=== PATIENT | male | born 1990 | race Caucasian/White ===

== ENCOUNTER → 2019-06-25 13:56 | Outpatient (BNVA) | payer SELFPAY | PROVIDERS: Family Provider Family Medicine; Visit Provider Family Medicine | DX: J02.9 Acute pharyngitis, unspecified (principal) | CPT/HCPCS: 87081; 87880 ==

== ENCOUNTER 2019-10-14 06:01 | Observation (INO) | payer SELFPAY ==
[2019-10-14] VITALS (30 sets, daily range): BP systolic 133–184; BP diastolic 69–121; PULSE 69–101; RESP 15–20; TEMP 36.5–37; O2SAT 94–99; BMI 36.9
--- NOTE | 2019-10-14 | CT_ITS ---
WS: [id number] CT ABDOMEN AND PELVIS WITH CONTRAST HISTORY: ABD PAIN TECHNIQUE: Imaging performed of the abdomen and pelvis with IV contrast. Single phase imaging of the abdomen. Coronal and sagittal reformats are submitted. All CT scans at [facility] use at least one of these dose optimization techniques: automated exposure control; mA and/or kV adjustment per patient size (includes targeted exams where dose is matched to clinical indication); or iterativ e reconstruction. IV CONTRAST: Omnipaque 300; 95 mL IV. Oral contrast: No DLP: 1837.44 mGy.cm COMPARISON: None available. Lower thorax: Lung bases are clear. Heart is normal size. No hiatal hernia. Liver/biliary system: Normal size with no intrahepatic dilatation. Gallbladder: Normal. No gallstones or wall thickening. No pericholecystic fluid. Pancreas: Normal. Spleen: Normal. Adrenal glands: Normal. Right kidney: Cortical hypodensity upper pole too small to characterize. No mass, calcification or ob struction. Left kidney: Normal. Aorta: Normal. Lymphadenopathy: None. Free fluid: None. GI tract: The appendix is visualized. There is no significant periappendiceal inflammation or fluid. There is very slight hyperemia and the appendix is measuring 6 to 7 mm in diameter. Remaining GI trac t is negative. Abdominal wall: Unremarkable abdominal wall. No hernia. Pelvis: Normal. Bones: L5 anterolisthesis by 4 mm with bilateral pars defects at L5. CT/CT abdomen pelvis w con* [id number] IMPRESSION: 1. No GI tract obstruction. 2. The appendix is very slightly enlarged without adjacent inflammation. No pr ior studies for comparison. Very early changes of developing appendicitis shoul d be considered if this correlates with the clinical presentation.
--- NOTE | 2019-10-14 06:15 | PC.NURSE ---
patient states he started having abdominal pain on sunday. patient states his whole abdomen hurts with sharp pain.
[2019-10-14] MEDS: sodium chloride 0.9% 1,000 ML 999 ML IV (06:41)
[2019-10-14 06:51] LABS: Basophils % 0.1 %; Eosinophils # 0.3 10^3/uL (0.0-0.8); Eosinophils % 2.1 %; Hematocrit 48.4 % (42.0-52.0); Hemoglobin 15.9 g/dL (11.7-16.6); Lymphocytes # 1.9 10^3/uL (0.8-4.8); Lymphocytes % 11.6 %; Mean Corpuscular HGB Conc 32.9 g/dL (30.0-36.0); Mean Corpuscular Hemoglobin 27.9 pg (28.0-34.0); Mean Corpuscular Volume 85.1 fL (80-94); Mean Platelet Volume 10.5 fL (7.4-10.4); Monocytes % 6.4 %; Neutrophils # 12.8 10^3/uL (1.8-7.7); Neutrophils % 79.5 %; Nucleated Red Blood Cells % 0 %; Platelet Count 318 10^3/cmm (130-400); Red Blood Count 5.69 10^6/uL (4.1-5.3); Red Cell Distribution Width 13.2 % (12.1-15.1)
--- NOTE | 2019-10-14 06:54 | US_ITS ---
WS: [id number] RIGHT UPPER QUADRANT ULTRASOUND HISTORY: abd pain COMPARISON: 03/12/2018 Technically very difficult RIGHT upper quadrant evaluation. Liver: 21.5 cm in length. Marked enlargement of the liver. Liver is incompletely visualized due to he patic steatosis and body habitus. No mass identified. No bile duct dilatation. Gallbladder: Normally distended gallbladder with no stones or wall thickening. CBD: 0.5 cm Pancreas: Not visualized. Right kidney: 10.6 cm in length. Normal echogenicity with no mass or hydronephrosis. Aorta and IVC: Aorta and IVC are not visualized. No ascites. US/US gall bladder [id number] IMPRESSION: 1. Technically very difficult RIGHT upper quadrant ultrasound due to body habi tus. 2. Marked hepatomegaly and hepatic steatosis. 3. Negative gallbladder.
[2019-10-14 07:04] LABS: Alanine Aminotransferase 61 U/L (0-41); Albumin Level 4.5 g/dL (3.5-5.2); Alkaline Phosphatase 135 IU/L (40-130); Anion Gap 14.1 (5-19); Aspartate Amino Transferase 26 U/L (0-40); Blood Urea Nitrogen 9 mg/dL (6-20); Calcium 9.2 mg/dL (8.5-10.5); Carbon Dioxide 25 mmol/L (22-29); Chloride 100 mmol/L (98-107); Globulin 3.7 g/dL (1.3-4.6); Glomerular Filtration Rate 100.5 mL/min (90-130); Glucose 120 mg/dL (65-115); Lipase 19 U/L (13-60); Osmolality Calculated 277 mOsm/kg (285-295); Potassium 4.1 mmol/L (3.5-5.1); Sodium 135 mmol/L (136-145); Total Bilirubin 0.8 mg/dL (0.15-1.2); Total Protein 8.2 g/dL (6.6-8.7)
[2019-10-14 07:05] LABS: Lactate (Lactic Acid level) 0.8 mmol/L (0.5-2.2)
[2019-10-14] MEDS: morphine 4 mg/mL SDV 1 mL IVP (07:37)
[2019-10-14] MEDS: ondansetron 2 mg/ML SDV 2 mL 4 MG IVP ×2 (07:38→13:25)
--- NOTE | 2019-10-14 07:41 | PC.NURSE ---
PT IN NAD. PT DENIES ANY FURTHER NEEDS AT THIS TIME.
--- NOTE | 2019-10-14 07:46 | W.ED.ABDPA2 ---
HPI - Abdominal Pain General: Chief Complaint: Abdominal Pain Stated Complaint: ABD PAIN SINCE 10/10 Time Seen by Provider: 10/14/19 06:21 History of Present Illness: HPI narrative: 29-year-old male presents with epigastric pain radiating around into his back into his right upper quadrant and started about 2 to 3 days ago he has been nauseous with it no vomiting or diarrhea is not had a fever he is not had any GI blood loss that is noted no hematochezia melena hematemesis Anjum was taken Tylenol last couple days with no significant relief he has had several loose stools but he says that is chronic he also reports he is lactose intolerant he does not indulge in any large amounts of lactose lately that he can recall beyond that has not noticed any trigger foods or anything that seem to exacerbate or relieve it. MD elicited complaint: abdominal pain Pertinent past history: gastritis Onset (ago): day(s) (2) Pain Consistency: constant Location: RUQ Severity: moderate Quality: cramping and aching Radiation: R flank and back Migration to: periumbilical Exacerbating factors: nothing and other (Laying flat seem to worsen for exam) Relieving factors: nothing and other (Sitting up did seem to improve) Associated Symptoms: Reports bloating, change in bowel habits, GI cramping, diarrhea, dyspepsia, nausea and poor appetite; Denies dysuria, fever(s), hematochezia, hematuria, hematemesis, fecal incontinence and melena Review of Systems Const: Denies: fever(s) ENMT: Denies: throat pain, ear or mastoid pain, nasal discharge or nasal congestion Card: Denies: chest pain, edema, dyspnea on exertion or orthopnea Resp: Denies: dyspnea, productive cough or non-productive cough GI: Reports: nausea, diarrhea, bloating, GI cramping and change in bowel habits; Denies: hematemesis, fecal incontinence, hematochezia or melena : Denies: dysuria or hematuria Skin/Breast: Denies: rash or pruritus PFSH ED PFSH: Medical History Asthma Cardiac murmur Hypertension Surgical History No history of previous surgery Social History Smoking and tobacco status: never smoked Physical Exam Const: COMMON NORMALS: no acute distress GENERAL APPEARANCE: cooperative and comfortable ORIENTATION/CONSCIOUSNESS: Yes awake, Yes oriented to person, Yes oriented to place and Yes oriented to time HENMT: COMMON NORMALS: normocephalic, atraumatic, hearing grossly normal bilaterally, external ears normal, EAC's normal, TM's normal bilaterally, Normal nasal mucous membranes and turbinates present, moist oral mucous membranes and oropharynx normal HEAD & SCALP: normocephalic and atraumatic NOSE: Normal nasal mucous membranes and turbinates present EXTERNAL EAR: Yes external ears normal EXTERNAL AUDITORY CANAL: EAC's normal TYMPANIC MEMBRANE: TM's normal bilaterally Eye: COMMON NORMALS: Equal, round and reactive pupils present, EOMs intact bilaterally, conjunctivae normal and no scleral icterus CONJUNCTIVA: Yes conjunctivae normal PUPIL: Yes Equal, round and reactive pupils present Neck/C-Spine: COMMON NORMALS: full ROM, no lymphadenopathy, supple and no JVD Lymph: LYMPHATIC: no lymphadenopathy noted and no lymphedema noted Resp: COMMON NORMALS: normal respiratory effort, No retractions, No use of accessory muscles and clear to auscultation bilaterally AUSCULTATION: clear to auscultation bilaterally Cardio: COMMON NORMALS: no JVD, regular rate, regular rhythm and No murmurs present (Cardio) RATE: regular rate RHYTHM: regular rhythm GI: AUSCULTATION: Yes normoactive bowel sounds PALPATION: Yes Tenderness to palpation present (GI) Details: RUQ, No Guarding due to palpation present (GI), No Rigid due to palpation, No Ascites present, No Abdominal wall crepitus present and No Rebound tenderness present Extremity: COMMON NORMALS: normal to inspection, capillary refill normal, no clubbing, cyanosis or edema, no calf tenderness and no pedal edema Neuro: SENSORIUM/ORIENTATION: Yes oriented to person, Yes oriented to place and Yes oriented to time Skin: COMMON NORMALS: no rashes or lesions noted GENERAL SKIN EXAM: no rashes or lesions noted Course Vital Signs: Vital signs: Vital Signs Temperature 97.9 F 10/15/19 02:35 Pulse Rate 76 10/15/19 02:35 Respiratory Rate 18 10/15/19 02:35 Blood Pressure 148/86 10/15/19 02:35 Pulse Oximetry 97 10/15/19 02:35 MDM - Abdominal Pain MDM Narrative: Medical decision making narrative: Discussed CT findings with the patient as well as with Dr. Byrnes. He plans to take the patient to the operating room from the ER. Be brought to outpatient surgery for laparoscopy with planned appendectomy per Dr. Byrnes. Further disposition from there. Lab Data: Labs: Lab Results 10/14/19 10/14/19 10/14/19 Range/Units 06:44 06:44 06:44 WBC 16.0 H (4.0-10.0) 10^3/ uL RBC 5.69 H (4.1-5.3) 10^6/u L Hgb 15.9 (11.7-16.6) g/dL Hct 48.4 (42.0-52.0) % MCV 85.1 (80-94) fL MCH 27.9 L (28.0-34.0) pg MCHC 32.9 (30.0-36.0) g/dL RDW 13.2 (12.1-15.1) % Plt Count 318 (130-400) 10^3/c mm MPV 10.5 H (7.4-10.4) fL Neut % (Auto) 79.5 % Lymph % (Auto) 11.6 % [place] % (Auto) 6.4 % Eos % (Auto) 2.1 % Baso % (Auto) 0.1 % Neut # (Auto) 12.8 H (1.8-7.7) 10^3/u L Lymph # (Auto) 1.9 (0.8-4.8) 10^3/u L [place] # (Auto) 1.0 H (0.2-0.9) 10^3/u L Eos # (Auto) 0.3 (0.0-0.8) 10^3/u L Baso # (Auto) 0.0 (0.0-0.1) 10^3/u L Nucleated RBC % (a uto) 0 % Nucleated RBCs # 0.0 /100WBC Sodium 135 L (136-145) mmol/L Potassium 4.1 (3.5-5.1) mmol/L Chloride 100 (98-107) mmol/L Carbon Dioxide 25 (22-29) mmol/L Anion Gap 14.1 (5-19) BUN 9 (6-20) mg/dL Creatinine 0.9 (0.7-1.2) mg/dL GFR Calculation 100.5 (90-130) mL/min Glucose 120 H (65-115) mg/dL Calculated Osmolal ity 277 L (285-295) mOsm/k g Lactate 0.8 (0.5-2.2) mmol/L Calcium 9.2 (8.5-10.5) mg/dL Total Bilirubin 0.8 (0.15-1.2) mg/dL AST 26 (0-40) U/L ALT 61 H (0-41) U/L Alkaline Phosphata se 135 H (40-130) IU/L Total Protein 8.2 (6.6-8.7) g/dL Albumin 4.5 (3.5-5.2) g/dL Globulin 3.7 (1.3-4.6) g/dL Lipase 19 (13-60) U/L Hepatitis A IgM Ab (Nonreactive) Hep Bs Antigen (Nonreactive) Hep B Core IgM Ab (Nonreactive) Hepatitis C Antibo dy (Nonreactive) 10/14/19 Range/Units 06:44 WBC (4.0-10.0) 10^3/ uL RBC (4.1-5.3) 10^6/u L Hgb (11.7-16.6) g/dL Hct (42.0-52.0) % MCV (80-94) fL MCH (28.0-34.0) pg MCHC (30.0-36.0) g/dL RDW (12.1-15.1) % Plt Count (130-400) 10^3/c mm MPV (7.4-10.4) fL Neut % (Auto) % Lymph % (Auto) % [place] % (Auto) % Eos % (Auto) % Baso % (Auto) % Neut # (Auto) (1.8-7.7) 10^3/u L Lymph # (Auto) (0.8-4.8) 10^3/u L [place] # (Auto) (0.2-0.9) 10^3/u L Eos # (Auto) (0.0-0.8) 10^3/u L Baso # (Auto) (0.0-0.1) 10^3/u L Nucleated RBC % (a uto) % Nucleated RBCs # /100WBC Sodium (136-145) mmol/L Potassium (3.5-5.1) mmol/L Chloride (98-107) mmol/L Carbon Dioxide (22-29) mmol/L Anion Gap (5-19) BUN (6-20) mg/dL Creatinine (0.7-1.2) mg/dL GFR Calculation (90-130) mL/min Glucose (65-115) mg/dL Calculated Osmolal ity (285-295) mOsm/k g Lactate (0.5-2.2) mmol/L Calcium (8.5-10.5) mg/dL Total Bilirubin (0.15-1.2) mg/dL AST (0-40) U/L ALT (0-41) U/L Alkaline Phosphata se (40-130) IU/L Total Protein (6.6-8.7) g/dL Albumin (3.5-5.2) g/dL Globulin (1.3-4.6) g/dL Lipase (13-60) U/L Hepatitis A IgM Ab Non-reactive (Nonreactive) Hep Bs Antigen Non-reactive (Nonreactive) Hep B Core IgM Ab Non-reactive (Nonreactive) Hepatitis C Antibo dy Non-reactive (Nonreactive) Discharge Plan Discharge Patient Disposition: Placed in Observation Admit Provider: Luis Hamilton Clinical Impression: Acute appendicitis Condition: Stable Referrals: Santiago Proctor MD [Primary Care Provider] - Discharge Date/Time: 10/14/19 09:46 Coding Level of Care Code ED Quality Review Specialist for Chg Fwd Exam Comprehensive
[2019-10-14 08:06] LABS: Hepatitis A Antibody IgM Non-Reactive (Nonreactive); Hepatitis B Core IgM Non-Reactive (Nonreactive); Hepatitis B Surface Antigen Non-Reactive (Nonreactive); Hepatitis C Virus Antibody Non-Reactive (Nonreactive)
[2019-10-14] MEDS: iohexol 300 mg/mL 100 mL Btl IV (08:17)
[2019-10-14] MEDS: piperacillin-tazobactam 3.375 GM in sodium chloride 0.9% (plus) 50 ML IV ×2 (09:33→18:21)
--- NOTE | 2019-10-14 09:40 | PC.NURSE ---
DR. LLOYD AT BEDSIDE SPEAKING WITH PT. PT IS IN NAD.
--- NOTE | 2019-10-14 09:53 | PM.HP ---
Providers/Chief Complaint Chief Complaint: ABD PAIN SINCE 10/10 History of Present Illness Chief Complaint: My tummy hurts History of present illness: Mr. rafita Candelario is a 29 year old male presents to the emergency department with worsening abdominal pain that started in the upper abdomen last Sunday and over the last couple of days got worse and started to shift to the lower abdomen associated with nausea but no vomiting fevers or chills or change in bowel habits except for today he started to have diarrhea. Patient denies any urinary tract infection or dysuria. He never had this pain before as the pain got worse he presented to the ER for further evaluation as nothing seems to make it better except for some pain medication and undergone a CT scan of the abdomen and pelvis that showed: Liver/biliary system: Normal size with no intrahepatic dilatation. Gallbladder: Normal. No gallstones or wall thickening. No pericholecystic fluid. Pancreas: Normal. Spleen: Normal. Adrenal glands: Normal. Right kidney: Cortical hypodensity upper pole too small to characterize. No mass, calcification or obstruction. Left kidney: Normal. Aorta: Normal. Lymphadenopathy: None. Free fluid: None. GI tract: The appendix is visualized. There is no significant periappendiceal inflammation or fluid. There is very slight hyperemia and the appendix is measuring 6 to 7 mm in diameter. Remaining GI tract is negative. Abdominal wall: Unremarkable abdominal wall. No hernia. Pelvis: Normal. Bones: L5 anterolisthesis by 4 mm with bilateral pars defects at L5. CT/CT abdomen pelvis w con* [id number] IMPRESSION: 1. No GI tract obstruction. 2. The appendix is very slightly enlarged without adjacent inflammation. No prior studies for comparison. Very early changes of developing appendicitis should be considered if this correlates with the clinical presentation. 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 that did not require any intervention Review of Systems General: Reports: 10 or more systems reviewed and unremarkable except in HPI and below Medications/Allergies Home Medications Medication Instructions Recorded Confirmed Last Taken Type acetaminophen [Tylenol Extra 1,000 mg PO PRN 10/14/19 10/14/19 Unknown History Strength] ibuprofen [Advil] 400 mg PO PRN 10/14/19 10/14/19 10/13/19 History Allergies Allergy/AdvReac Type Severity Reaction Status Date / Time Milk Containing Products Allergy Lactose Verified 10/14/19 09:55 intolerance Sulfa (Sulfonamide Allergy swelling Verified 10/14/19 09:55 Antibiotics) PFSH Acute PFSH: Medical History Asthma Cardiac murmur Hypertension Surgical History No history of previous surgery Social History Smoking and tobacco status: never smoked Vitals/I&O/Wt Last Vital Signs Temp 98.6 F 10/14/19 06:08 Pulse 80 10/14/19 09:30 Resp 18 10/14/19 09:30 BP 170/105 10/14/19 09:30 Pulse Ox 95 10/14/19 09:30 Weight last 48 hrs Weight 280 lb Physical Exam Narrative: EXAM NARRATIVE: Patient is conscious alert oriented X3 BMI 37 Head and neck examination PERRLA no masses no cervical lymphadenopathy no jaundice Cardiac precordial murmur Chest is clear bilateral,abscence of Rhonchi or wheezes,no surgical emphysema Abdomen nontender except on deep palpation on the right side of the abdomen with mild guarding consistent with acute appendicitis nondistended soft no organomegaly guarding or rigidity/no signs of peritonitis Obese Extremities no cyanosis no clubbing no edema Data : 10/14/19 06:44 10/14/19 06:44 A&P Assessment and plan (1) Acute appendicitis: After thorough history physical examination and reviewing the chart and images and further discussion and images with Dr. Mcbride our radiology, did senior vice president & general counsel the patient for laparoscopic appendectomy possible open, being the fact that the images represent early appendicitis likely it is the cause of patient's abdominal pain. Patient understands the plan of care and he did agree to proceed accordingly, indications, risks, benefits and alternatives all discussed with the patient and he agreed to proceed as well as his spouse for laparoscopic appendectomy possible open. Patient understands there is a slight chance that this may not help with his pain is not related to the inflamed appendix Status: Acute Attestations Medical Necessity Statement*: Observation status Time Spent in Patient Care: (>than 50% of time spent in counselling and/or direct pt care on unit). Coding Level of Care Code Acute Pig Handler for Chg Fwd Diagnoses Acute appendicitis K35.80
--- NOTE | 2019-10-14 10:10 | P.ANESASSM_ITS ---
Pre-Anesthetic Assessment Pre-Anesthetic Assessment: Height/Weight: Height 1.85 m Weight 127.006 kg Temp Pulse Resp BP Pulse Ox 97.9 F 75 18 175/69 99 10/14/19 09:58 10/14/19 09:58 10/14/19 09:58 10/14/19 09:58 10/14/19 09:58 Preop Diagnosis: Acute appendicitis Proposed Procedure: Operation Date: 10/14/19 11:50 Proposed Procedures p Laparoscopic Appendectomy(Not Applicable) - Luis Hamilton MD Familial anesthetic complications: Takes a lot to get me to sleep Was Beta Elton taken within 24 hours: N/A Last intake: Intake Last Liquid Date 10/13/19 Last Liquid Time 19:30 Last Solid Date 10/13/19 Last Solid Time 19:30 Social: Social History: No alcohol and No tobacco Exam: Pre-Anes Outpt Exam: alert, oriented x 3, clear to auscultation bilaterally and regular rate & rhythm Airway: Cervical ROM: WNL MP: 3 Dentition: Chipped and Loose Additional comments: poor dentition ( my teeth are rotten) sensitive teeth says they are painful Pulmonary: Pulmonary: Asthma CV/HEM: CV/HEM: Murmur : : None reported Hepatic: Hepatic: None reported Metabolic: Metabolic: Morbid obesity Musc/skel: Musc/skel: None reported Neuropsych: Neuropsych: None reported Anesthetic Plan: ASA status: 2E Anesthesia: General Risk of > 500 ml blood loss (7ml/kg in children): No PFSH Anesthesia PFSH: Medical History Asthma Cardiac murmur Hypertension Surgical History No history of previous surgery Social History Smoking and tobacco status: never smoked Data Anesthesia CBC & Chem 7: 10/14/19 06:44 10/14/19 06:44 Other Labs: Laboratory Results - last 48 hr 10/14/19 10/14/19 10/14/19 06:44 06:44 06:44 WBC 16.0 H RBC 5.69 H Hgb 15.9 Hct 48.4 MCV 85.1 MCH 27.9 L MCHC 32.9 RDW 13.2 Plt Count 318 MPV 10.5 H Neut % (Auto) 79.5 Lymph % (Auto) 11.6 [place] % (Auto) 6.4 Eos % (Auto) 2.1 Baso % (Auto) 0.1 Neut # (Auto) 12.8 H Lymph # (Auto) 1.9 [place] # (Auto) 1.0 H Eos # (Auto) 0.3 Baso # (Auto) 0.0 Nucleated RBC % (auto) 0 Nucleated RBCs # 0.0 Sodium 135 L Potassium 4.1 Chloride 100 Carbon Dioxide 25 Anion Gap 14.1 BUN 9 Creatinine 0.9 GFR Calculation 100.5 Glucose 120 H Calculated Osmolality 277 L Lactate 0.8 Calcium 9.2 Total Bilirubin 0.8 AST 26 ALT 61 H Alkaline Phosphatase 135 H Total Protein 8.2 Albumin 4.5 Globulin 3.7 Lipase 19 Hepatitis A IgM Ab Hep Bs Antigen Hep B Core IgM Ab Hepatitis C Antibody 10/14/19 06:44 WBC RBC Hgb Hct MCV MCH MCHC RDW Plt Count MPV Neut % (Auto) Lymph % (Auto) [place] % (Auto) Eos % (Auto) Baso % (Auto) Neut # (Auto) Lymph # (Auto) [place] # (Auto) Eos # (Auto) Baso # (Auto) Nucleated RBC % (auto) Nucleated RBCs # Sodium Potassium Chloride Carbon Dioxide Anion Gap BUN Creatinine GFR Calculation Glucose Calculated Osmolality Lactate Calcium Total Bilirubin AST ALT Alkaline Phosphatase Total Protein Albumin Globulin Lipase Hepatitis A IgM Ab Non-reactive Hep Bs Antigen Non-reactive Hep B Core IgM Ab Non-reactive Hepatitis C Antibody Non-reactive Cardiac Studies: No Data to Display
[2019-10-14] MEDS: heparin 5,000 unit/mL INJ 1 mL 3000 UNIT SUBCUT (10:15)
[2019-10-14] MEDS: midazolam 1 mg/mL INJ 2 mL 2 MG IVP (10:49)
[2019-10-14] MEDS: lidocaine 2% INJ 20 mL INJECTION (12:30)
--- NOTE | 2019-10-14 12:42 | PM.OP ---
Operative Report Date of procedure: October 14, 2019 Pre-op Diagnosis: Acute appendicitis Post-op diagnosis: same Post-op Findings: Acute retro-cecal appendicitis without perforation Procedure Done: Laparoscopic appendectomy Specimens removed/disposition: Appendix Surgeon: Luis Hamilton Mold Filler And Drainer: Surgical bree Shell Circulating nurse Shanika Anesthesia: General (sandblaster supervisor Wilfrido) Estimated blood loss (mL): 10 IV fluids (mL): 1,000 Condition: stable Disposition: observation Brief History: s: Mr. rafita Candelario is a 29 year old male presents to the emergency department with worsening abdominal pain that started in the upper abdomen last Sunday and over the last couple of days got worse and started to shift to the lower abdomen associated with nausea but no vomiting fevers or chills or change in bowel habits except for today he started to have diarrhea. Patient denies any urinary tract infection or dysuria. He never had this pain before as the pain got worse he presented to the ER for further evaluation as nothing seems to make it better except for some pain medication and undergone a CT scan of the abdomen and pelvis that showed: Liver/biliary system: Normal size with no intrahepatic dilatation. Gallbladder: Normal. No gallstones or wall thickening. No pericholecystic fluid. Pancreas: Normal. Spleen: Normal. Adrenal glands: Normal. Right kidney: Cortical hypodensity upper pole too small to characterize. No mass, calcification or obstruction. Left kidney: Normal. Aorta: Normal. Lymphadenopathy: None. Free fluid: None. GI tract: The appendix is visualized. There is no significant periappendiceal inflammation or fluid. There is very slight hyperemia and the appendix is measuring 6 to 7 mm in diameter. Remaining GI tract is negative. Abdominal wall: Unremarkable abdominal wall. No hernia. Pelvis: Normal. Bones: L5 anterolisthesis by 4 mm with bilateral pars defects at L5. CT/CT abdomen pelvis w con* [id number] IMPRESSION: 1. No GI tract obstruction. 2. The appendix is very slightly enlarged without adjacent inflammation. No prior studies for comparison. Very early changes of developing appendicitis should be considered if this correlates with the clinical presentation. 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 An informed consent per chart Procedure: Patient after being identified in the holding area and asked to void urine, and informed consent per chart ,patient was then taken back to the OR placed in supine position got intubated by anesthesia left arm was tucked tucked ,Timeout was done verifying the patient's name/date of /planned procedure and destination after the procedure, all were in agreement., preoperative antibiotics administered per protocol. prep and drape of the abdomen was done under the usual sterile technique. Started by longitudinal skin incision supraumbilical using a Frazier trocar technique safe entry to the abdominal cavity was achieved verified by using 10 mm zero degree laparoscopy, switched to a 30? scope under direct visualization a suprapubic 5 mm trocar was inserted followed by another 5 mm trocar inserted in the left lower quadrant, I was able to position the patient in an T Mcnally and left side down, dissection of the prececal acutely inflamed appendix there was some adhesions towards the lateral pelvic wall that was taken down by sharp and blunt dissection, attention was deviated to the healthy base of the appendix where I had to switch the camera to 5 mm 30? scope got introduced through the left lower quadrant and through the Frazier trocar under direct visualization a GI stapler 45 mm blue load was applied at the healthy part of the base of the appendix, and an Endoloop PDS was applied onto the mesoappendix for control , the appendix was then retrieved in an Endo Catch bag, final survey was done of the abdomen and pelvis , irrigation with warm saline, and suction was obtained. Multiple 5 mm clips were applied onto the mesoappendix as well as the appendectomy staple line for minimal oozing Final look laparoscopy was done showing no other abnormalities or injuries, all trocars were taken out under direct visualization after the supraumblical trocar site was closed by #1 sutures under direct vision using fascial closure device ,followed by skin closure using 4-0 Monocryl of all trocar site incisions. infiltration of local lidocaine 2% was done to all incision sites.Dry dressing was applied. Count was completed at the end of the procedure for [place] , sponges and instruments Patient tolerated the procedure well and was transferred to the recovery area after extubation. I was present for the whole entire procedure
[2019-10-14] MEDS: fentaNYL 50 mcg/mL INJ 2mL IVP (13:23)
--- NOTE | 2019-10-14 13:30 | SUR.PHASEI ---
1323 PT TO PACU SLEEPY WITH GOOD RESP NOTED PT AWAKES TO VOICE ABD SOFT 3 SITES WITH EXOFIN, HOB AT 45 DEGREES, PT C/O OF PAIN OF 10 TO ABD PT ALSO C/O OF NAUSEA SEE MEDS GIVEN, VSS 1325 PT SLEEPY BUT AWAKES EASILY , SATS DOWN TO 90% AFTER PAIN MEDS PT PLACED ON 3LNC SATS QUICKLY UP TO 96%. 1332 PT SLEEPS IF NOT AWAKENED PT STILL RATES PAIN AT 10 AND UNCHANGED BUT QUICKLY BACK TO SLEEP WITH SNORING RESP VSS.
--- NOTE | 2019-10-14 13:43 | SUR.PHASEI ---
1640 PT SLEEPING QUIETLY, NO DISTRESS, REPORT CALLED TO FLOOR, PT NOW OUT OF PHASE 1 RECOVERY AND IN HOLDING .WAITING FOR FLOOR BED TO BE AVAILABLE.
[2019-10-14] MEDS: HYDROcodone-acetaminophen 5-325 mg Tablet 1 TAB PO ×2 (15:28→21:18)
[2019-10-14] MEDS: famotidine 20 mg/2 mL INJ IVP (15:36)
[2019-10-14] MEDS: lactated ringers 1,000 ML 100 ML IV ×2 (15:36→21:19)
[2019-10-14] MEDS: heparin 5,000 unit/mL INJ 1 mL 5000 UNIT SUBCUT (21:18)
[2019-10-15] VITALS (7 sets, daily range): BP systolic 148–160; BP diastolic 85–94; PULSE 76–96; RESP 15–18; TEMP 36.6–37.3; O2SAT 93–97
[2019-10-15] MEDS: piperacillin-tazobactam 3.375 GM in sodium chloride 0.9% (plus) 50 ML IV ×3 (00:55→18:19)
[2019-10-15] MEDS: famotidine 20 mg/2 mL INJ IVP ×2 (04:23→15:18)
[2019-10-15] MEDS: HYDROcodone-acetaminophen 5-325 mg Tablet 1 TAB PO ×4 (04:23→21:22)
[2019-10-15 05:27] LABS: Basophils % 0.1 %; Eosinophils # 0.4 10^3/uL (0.0-0.8); Eosinophils % 2.2 %; Hematocrit 37.4 % (42.0-52.0); Mean Corpuscular HGB Conc 32.1 g/dL (30.0-36.0); Mean Corpuscular Hemoglobin 28.6 pg (28.0-34.0); Mean Corpuscular Volume 89.3 fL (80-94); Mean Platelet Volume 10.7 fL (7.4-10.4); Monocytes # 1.6 10^3/uL (0.2-0.9); Monocytes % 7.9 %; Neutrophils # 16.1 10^3/uL (1.8-7.7); Neutrophils % 79.2 %; Nucleated Red Blood Cells % 0 %; Platelet Count 322 10^3/cmm (130-400); Red Blood Count 4.19 10^6/uL (4.1-5.3); Red Cell Distribution Width 13.5 % (12.1-15.1); White Blood Count 20.2 10^3/uL (4.0-10.0)
--- NOTE | 2019-10-15 05:35 | P.PN_ITS ---
Subjective Subjective: Interval history: Overall patient feels better Trending up and leukocytosis Patient tolerating clear liquid diet and passing gas Vitals/I&O/Wt Last Vital Signs Temp 97.9 F 10/15/19 02:35 Pulse 76 10/15/19 02:35 Resp 18 10/15/19 02:35 BP 148/86 10/15/19 02:35 Pulse Ox 97 10/15/19 02:35 10/14/19 10/14/19 10/15/19 14:59 22:59 06:59 Intake Total 200 / 200 621.667 / 821.667 Output Total 350 / 365 Balance 185 / 185 271.667 / 456.667 Weight last 48 hrs Weight 280 lb Physical Exam Narrative: EXAM NARRATIVE: Patient is conscious alert oriented X3 BMI 37 Head and neck examination PERRLA no masses no cervical lymphadenopathy no jaundice Cardiac examination audible S1-S2 no murmurs no gallops no arrhythmias Chest is clear bilateral,abscence of Rhonchi or wheezes,no surgical emphysema Abdomen nontender nondistended soft no organomegaly guarding or rigidity/no signs of peritonitis Incisions are clean dry and intact Extremities no cyanosis no clubbing no edema Data : 10/15/19 10:17 10/15/19 04:23 A&P Assessment and plan (1) Acute appendicitis: Will advance to full liquid diet Continue IV antibiotics due to the trending up of leukocytosis Incentive spirometer every hour We will plan to repeat urinalysis as there has been one collected from the ER but there is no evidence of any reporting. Likely will continue the patient for another night in an observation status and continued IV antibiotics with the plan to repeat CBC tomorrow. Assurance and education All questions have been answered and all concerns have been addressed to patient's satisfaction. Status: Resolved Attestations Medical Necessity Statement*: Observation status Time Spent in Patient Care: (>than 50% of time spent in counselling and/or direct pt care on unit) . Coding Level of Care Code Acute Biometrics Head for star Heck Diagnoses Acute appendicitis K35.80
[2019-10-15 06:02] LABS: Anion Gap 14.2 (5-19); Blood Urea Nitrogen 11 mg/dL (6-20); Calcium 8.7 mg/dL (8.5-10.5); Carbon Dioxide 25 mmol/L (22-29); Chloride 99 mmol/L (98-107); Glucose 144 mg/dL (65-115); Osmolality Calculated 277 mOsm/kg (285-295); Potassium 4.2 mmol/L (3.5-5.1); Sodium 134 mmol/L (136-145)
[2019-10-15 06:19] LABS: Add Urine Microscopic? YES; Bilirubin Urine Neg (NEGATIVE); Blood Urine Neg (Negative); Glucose Urine UA Norm (Normal); Ketones Urine 1+ (Negative); Leukocyte Esterase Urine Negative (Negative); Nitrate Urine Negative (Negative); Protein Urine Neg (Negative); Specific Gravity, Urine 1.025 (1.005-1.030); Urine Appearance Cloudy (CLEAR); Urine Color Yellow (Yellow); Urobilinogen Urine Norm (Negative); pH Urine 5 (5-7)
[2019-10-15 06:20] LABS: Bacteria Urine TRACE; Mucus Urine TRACE; RBC Urine RARE /hpf (0-2); Squamous Epithelial Cell Urine 0-4 (0-5); WBC Urine 0-4 /hpf (0-5)
[2019-10-15 06:21] LABS: Add Urine Culture? No; Amorphous Sediment Urine 3+
--- NOTE | 2019-10-15 09:53 | PC.CHAP ---
Pastoral Care Encounter/Spiritual Assessment Type of Contact [] Declined medical social worker visit [] Patient/Family/Request visit [] Outpatient visit [] Follow-up visit [] Physician referral [] Code/Alert [x] Routine visit [] Staff referral [] Actively dying [] Patient sleeping [] Family support [] [] Out of room [] Palliative care [] [] Receiving care in room [] Pre-surgical visit [] Trauma [] Long length of stay [] ICU visit [] Other: Relational/Emotional Strength [] Patient feels connected with others/family/visitors/staff [] Distress [] Loneliness/isolation [] Abandonment Spirituality of Patient [] Person of Ioana [] Attends Yarsani of their Ioana [] Believes in Prayer [] Reads Bible or Yarsanism materials [] There are Spiritual issues to be addressed Gun Stocker Interventions [x] Prayer [x] Active listening [x] Non-anxious presence [x] Spiritual/emotional support [] Crisis/trauma care [] Spiritual counseling [] Bereavement support [] Provided bereavement packet [] Provided Bible/devotional materials [] Provided toy/stuffed animal, coloring book to patient or family member [] Provided Communion [] Anointing/[place] [] Salvation [] Completed spiritual assessment [] Other: Impact on Illness or Injury [] Angry [] Fearful [] Anxious [] Often cries [] Exhaustion [] Unable to work [] Unable to attend moravian [] Unable to walk/stand [] Unable to read [] Unable to drive [] Unable to eat/drink [] Unable to sleep [] Unable to be with family [] Patient intubated [] Other: Summary Patient resting- on pain meds Time spent with patient 5 min
[2019-10-15 10:32] LABS: Basophils % 0.2 %; Eosinophils # 0.6 10^3/uL (0.0-0.8); Eosinophils % 2.8 %; Hematocrit 36.3 % (42.0-52.0); Hemoglobin 11.6 g/dL (11.7-16.6); Lymphocytes # 2.7 10^3/uL (0.8-4.8); Lymphocytes % 13.4 %; Mean Corpuscular Hemoglobin 28.4 pg (28.0-34.0); Mean Platelet Volume 10.6 fL (7.4-10.4); Monocytes # 1.7 10^3/uL (0.2-0.9); Monocytes % 8.5 %; Neutrophils # 14.8 10^3/uL (1.8-7.7); Neutrophils % 74.6 %; Nucleated Red Blood Cells % 0 %; Platelet Count 312 10^3/cmm (130-400); Red Blood Count 4.08 10^6/uL (4.1-5.3); Red Cell Distribution Width 13.4 % (12.1-15.1); White Blood Count 19.8 10^3/uL (4.0-10.0)
[2019-10-15] MEDS: lactated ringers 1,000 ML 100 ML IV (15:19)
[2019-10-16] MEDS: piperacillin-tazobactam 3.375 GM in sodium chloride 0.9% (plus) 50 ML IV (01:17)
[2019-10-16] MEDS: lactated ringers 1,000 ML 100 ML IV (01:20)
[2019-10-16] MEDS: famotidine 20 mg/2 mL INJ IVP (02:18)
[2019-10-16] MEDS: HYDROcodone-acetaminophen 5-325 mg Tablet 1 TAB PO (03:46)
[2019-10-16 04:27] VITALS: BP 153/91; PULSE 95; RESP 16; TEMP 37.5; O2SAT 96
--- NOTE | 2019-10-16 06:37 | P.SS_ITS ---
Short Stay Summary Providers Date of Admit/Discharge: 10/16/19 Attending Provider: Luis Hamilton MD Primary Care Provider: Fan Proctor Chief Complaint: Acute appendicitis HPI History of Present Illness Fuad Candelario is a 29 year old male presented with worsening abdominal pain and was found to have early appendicitis on the CT scan, patient was counseled for laparoscopic appendectomy and overall did well with that regard postoperatively he did have trending up leukocytosis so I elected to give the patient for an additional night on parenteral antibiotic therapy, patient has been tolerating well p.o. intake having good urine output, passing gas and had a bowel movement. CBC today shows trending down, patient does not have any fevers tachycardia or hypotension, will plan to send the patient home today on a course of antibiotics for 7 days and have him follow-up with me at the office. Appropriate education were given to the patient Review of Systems General: Reports: 10 or more systems reviewed and unremarkable except in HPI and below Home Meds/Allergies Home Medications and Allergies Home Medications Medication Instructions Recorded Confirmed Type Advil 400 mg PO PRN 10/14/19 10/14/19 History Tylenol Extra Strength 1,000 mg PO PRN 10/14/19 10/14/19 History Allergies Allergy/AdvReac Type Severity Reaction Status Date / Time Milk Containing Products Allergy Lactose Verified 10/16/19 06:38 intolerance Sulfa (Sulfonamide Allergy swelling Verified 10/16/19 06:38 Antibiotics) PFSH Acute PFSH: Medical History Asthma Cardiac murmur Hypertension Surgical History No history of previous surgery Social History Smoking and tobacco status: never smoked Vitals/I&O/Wt Last Vital Signs Temp 99.5 F 10/16/19 04:27 Pulse 95 10/16/19 04:27 Resp 16 10/16/19 04:27 BP 153/91 10/16/19 04:27 Pulse Ox 96 10/16/19 04:27 10/15/19 10/15/19 10/16/19 14:59 22:59 06:59 Intake Total 1430 / 1430 170 / 1600 1000 / 2600 Output Total 850 / 850 200 / 1050 Balance 1430 / 1430 -680 / 750 800 / 1550 Physical Exam Narrative: EXAM NARRATIVE: Patient is conscious alert oriented X3 BMI 37 Head and neck examination PERRLA no masses no cervical lymphadenopathy no jaundice Cardiac percordial murmur Chest is clear bilateral,abscence of Rhonchi or wheezes,no surgical emphysema Abdomen nontender nondistended soft no organomegaly guarding or rigidity/no signs of peritonitis Extremities no cyanosis no clubbing no edema Hospital Course Discharge Summary: A pleasant 29 years old gentleman undergone uneventful laparoscopic appendectomy .patient overall doing well passing gas and tolerating p.o. intake and had a bowel, postoperatively pain is under control and continues to have stable vital signs. Tolerated advancement of diet and will plan to discharge home on oral antibiotics and pain medication SSS Data Data Completed and Pending: Completed Studies During Hospitalization Category Date Time Status CT abdomen pelvis w con* [id number] Urge nt Cat Scan 10/14/19 Completed US gall bladder 7 6705 Urgent Ultrasound 10/14/19 06:54 Completed Pending at discharge Category Date Time Status ES surgery / GI i mages Routine Exams 10/14/19 10:25 Taken Complete Blood Co unt w/Auto Stat Lab 10/16/19 06:24 Ordered Pathology: Surgic al [PTH] Routine Pth 10/14/19 13:17 Received Diagnoses at Discharge Discharge Diagnosis (1) Acute appendicitis: Status: Resolved Discharge Plan Discharge Patient Disposition: Home, Self-Care Condition: Stable Prescriptions: [place] 5-325 mg tablet 1 tab PO Q6H PRN (Reason: pain) Qty: 28 RF: 0 Augmentin 875-125 mg tablet 1 tab PO Q12H Qty: 14 RF: 0 Continued Tylenol Extra Strength 500 mg Tablet 1,000 mg PO PRN RF: 0 Advil 200 mg Tablet 400 mg PO PRN RF: 0 Discharge Orders: Discharge Order (Routine); Ordered 10/16/19 Ordered By: Luis Hamilton Referrals: Luis Hamilton MD [Physician] - (Return to surgery office in 10 days) Santiago Proctor MD [Primary Care Provider] - (You have a hospital follow up appointment with Dr. Proctor on October 19 at 3:40.) Discharge Diet: Advance as tolerated Patient Instructions: Hydrocodone/Acetaminophen (By mouth), Amoxicillin/Clavulanate Potassium (By mouth), Laparoscopic Appendectomy (DC) Activity Restrictions/Additional Instructions: 1. Patient can shower after 48 hours from surgery 2. Remove Dermabond 7 to 10 days after surgery, if there is a secondary dressing can take down after 48 hours. 3. Up and walking as tolerated 4. Do lift more than 5 pounds first 2 weeks after surgery and not more than 25 pounds 6 to 8 weeks after surgery. 5. Do not operate heavy machinery or drive while using pain medications. 6.Contact the office or return to the ER for worsening nausea vomiting fevers or chills, or noticing any redness around incision sites or discharge. 7. Avoid constipation Attestations Medical Necessity Statement*: Observation status Time Spent in Patient Care*: less than 30 min Specific Discharge Activities: Specific discharge activities: educating patient Status at Discharge: Cognitive status at discharge: cognitively intact , Behavioral status at discharge: cooperative , Functional status at discharge: independent ambulation Overall status at discharge: patient is progressing back to baseline Quality Metrics Clinical Quality Measures: During this hospital stay, did patient experience: None Coding Level of Care Code Acute Baggage Clerk for Dayne Heck Diagnoses Acute appendicitis K35.80
[2019-10-16 06:55] VITALS: BP 153/91; PULSE 95; RESP 16; TEMP 37.5; O2SAT 96
[2019-10-16 08:00] VITALS: BP 162/90; PULSE 83; RESP 18; TEMP 37.2; O2SAT 95
[2019-10-16 09:58] LABS: Basophils % 0.1 %; Eosinophils # 0.2 10^3/uL (0.0-0.8); Eosinophils % 1.3 %; Hematocrit 34.8 % (42.0-52.0); Hemoglobin 11.1 g/dL (11.7-16.6); Lymphocytes # 2.6 10^3/uL (0.8-4.8); Lymphocytes % 16.1 %; Mean Corpuscular HGB Conc 31.9 g/dL (30.0-36.0); Mean Corpuscular Hemoglobin 28.6 pg (28.0-34.0); Mean Corpuscular Volume 89.7 fL (80-94); Mean Platelet Volume 10.4 fL (7.4-10.4); Monocytes # 1.3 10^3/uL (0.2-0.9); Neutrophils # 11.67 10^3/uL (1.8-7.7); Nucleated Red Blood Cells % 0 %; Platelet Count 311 10^3/cmm (130-400); Red Blood Count 3.88 10^6/uL (4.1-5.3); Red Cell Distribution Width 13.3 % (12.1-15.1)
[2019-10-16 11:13] VITALS: BP 160/78; PULSE 95; RESP 18; TEMP 37.1; O2SAT 97
== END 2019-10-16 12:28 | disposition home or self-care (01) ==
LOC: ER 06:30 → OPS 08:52 → MEDSURG 13:25
PROVIDERS: Family Medicine; Admitting Provider Surgery; PCP Family Medicine; Visit Provider Surgery
PROC: 0DTJ4ZZ Resection of Appendix, Percutaneous Endoscopic Approach (ICD-10-PCS; CPT 44970; principal; 2019-10-14 11:30)
DX: K35.80 Unspecified acute appendicitis (principal); J45.909 Unspecified asthma, uncomplicated; I10 Essential (primary) hypertension
CPT/HCPCS: 44970; 12345; 36415; 74177; 76705; 80048; 80053; 80074; 81001; 81003; 83605; 83690; 85025; 88304; 96361; 96365; 96366; 96372; 96374; 96375; 99283; 99285; G0378; J0131; J1644; J2001; J2250; J2270; J2405; J2543; J2704; J2710; J3010; J3490; J7030; Q9967

== ENCOUNTER 2020-03-27 16:19 | Emergency (ER) | payer SELFPAY ==
[2020-03-27 16:28] VITALS: BP 154/110; PULSE 78; RESP 17; TEMP 36.8; O2SAT 97; BMI 35.6
[2020-03-27 16:40] VITALS: BP 154/110; PULSE 82; RESP 17; O2SAT 97
--- NOTE | 2020-03-27 16:52 | ED_ITS ---
Documented by User: ONESIMO Abad 03/28/20 07:39 HPI - Allergic Reaction General: Chief complaint: Allergic Reaction Stated complaint: ALLERGIC REACTION/RASH Time Seen by Provider: 03/27/20 16:42 History of Present Illness: HPI narrative: 30-year-old male comes in today with complaints of lips swelling and some hives. Patient had taken some naproxen at about 1:00 for a headache states he normally takes naproxen and ibu profen for his headaches. Patient states about 330 started having some hives to his upper extremities and to his lips. Patient took 50 mg of diphenhydramine but had no significant relief and came to the emergency room. Patient is breathing without difficulty. Patient appears in no pain. MD complaint: hives and facial swelling Review of Systems General: Reports: 10 or more systems reviewed and unremarkable except in HPI and below Skin/Breast: Reports: other (Facial swelling, hives) [facility] ED PFSH: Medical History (Updated 03/27/20 @ 16:51 by ONESIMO Abad) Asthma Cardiac murmur Hypertension Surgical History (System 02/06/20 @ 11:35 by Jazmyne Skelton) No history of previous surgery Status post laparoscopic appendectomy (~10/2019) Family History (System 02/06/20 @ 11:35 by Jazmyne Skelton) Denies family history of Anesthesia complication Bleeding disorder Social History (System 02/06/20 @ 11:35 by Jazmyne Skelton) Smoking and tobacco status: never smoked Physical Exam Const: COMMON NORMALS: no acute distress and patient oriented x3 GENERAL APPEARANCE: cooperative HENMT: COMMON NORMALS: normocephalic and Normal external nose present HEAD & SCALP: normal to inspection and normocephalic NOSE: Normal external nose present MOUTH: Normal oral and palatal mucosa present THROAT: posterior oropharynx normal Eye: GENERAL EYE: appearance normal, both eyes and all related structures Neck/C-Spine: COMMON NORMALS: full ROM Chest: COMMONS NORMALS: normal inspection of the chest Resp: COMMON NORMALS: normal respiratory effort EFFORT & INSPECTION: Yes able to speak in complete sentences Cardio: COMMON NORMALS: regular rate and regular rhythm RATE: regular rate RHYTHM: regular rhythm GI: COMMON NORMALS: non-tender Back/Pelvis: COMMON NORMALS: thoracic and lumbar spine normal to inspection Extremity: COMMON NORMALS: normal to inspection Neuro: COMMON NORMALS: patient oriented x3 and moves all extremities Psych: COMMON NORMALS: mental status grossly normal and cooperative Skin: NARRATIVE SKIN EXAM: Some your urticaria is noted to the forearms and back. Patient has some swelling of the facial lips. Course Vital Signs: Vital signs: Vital Signs Temperature 98.3 F 03/27/20 16:28 Pulse Rate 75 03/27/20 18:32 Respiratory Rate 17 03/27/20 16:40 Blood Pressure 154/110 03/27/20 16:40 Pulse Oximetry 95 03/27/20 18:32 Discharge Plan Discharge Patient Disposition: Home Clinical Impression: Allergic reaction Qualifiers: Encounter type: initial encounter Qualified Code(s): T78.40XA - Allergy, unspecified, initial encounter Condition: Stable Prescriptions: New Medrol (Jose) 4 mg tablets,dose pack See Rx Instructions .ROUTE .COMPLEX Qty: 21 RF: 0 No Action clobetasol 0.05 % gel 1 applic TOPICAL BID 7 Days Qty: 15 RF: 0 Discharge Orders: Discharge ED (Routine); Ordered 03/27/20 Ordered By: Nadeem Reyes Discharge Diet: Usual diet Discharge Activity: Resume usual activity Patient Instructions: Allergic Reaction Activity Restrictions/Additional Instructions: Do not take naproxen anymore. If you do decide to try ibuprofen make sure you Benadryl on hand and only take 1 ibuprofen when you try that. Can take Benadryl as needed for swelling. Follow-up if no significant provement. Coding Level of Care Code ED Commercial Assistant for Chg Fwd Exam Comprehensive Documented by User: ONESIMO Farfan 03/28/20 00:03 HPI - Allergic Reaction General: Chief complaint: Allergic Reaction Stated complaint: ALLERGIC REACTION/RASH Time Seen by Provider: 03/27/20 16:42 PFSH ED PFSH: Medical History (Updated 03/27/20 @ 16:51 by ONESIMO Abad) Asthma Cardiac murmur Hypertension Surgical History (System 02/06/20 @ 11:35 by Jazmyne Skelton) No history of previous surgery Status post laparoscopic appendectomy (~10/2019) Family History (System 02/06/20 @ 11:35 by Jazmyne Skelton) Denies family history of Anesthesia complication Bleeding disorder Social History (System 02/06/20 @ 11:35 by Jazmyne Skelton) Smoking and tobacco status: never smoked Course Vital Signs: Vital signs: Vital Signs Temperature 98.3 F 03/27/20 16:28 Pulse Rate 75 03/27/20 18:32 Respiratory Rate 17 03/27/20 16:40 Blood Pressure 154/110 03/27/20 16:40 Pulse Oximetry 95 03/27/20 18:32 Discharge Plan Discharge Patient Disposition: Home Clinical Impression: Allergic reaction Qualifiers: Encounter type: initial encounter Qualified Code(s): T78.40XA - Allergy, unspecified, initial encounter Condition: Stable Prescriptions: New Medrol (Jose) 4 mg tablets,dose pack See Rx Instructions .ROUTE .COMPLEX Qty: 21 RF: 0 No Action clobetasol 0.05 % gel 1 applic TOPICAL BID 7 Days Qty: 15 RF: 0 Discharge Orders: Discharge ED (Routine); Ordered 03/27/20 Ordered By: Nadeem Reyes Discharge Diet: Usual diet Discharge Activity: Resume usual activity Patient Instructions: Allergic Reaction Activity Restrictions/Additional Instructions: Do not take naproxen anymore. If you do decide to try ibuprofen make sure you Benadryl on hand and only take 1 ibuprofen when you try that. Can take Benadryl as needed for swelling. Follow-up if no significant provement. Coding Level of Care Code ED Commercial Assistant for Dayne Fwd Exam Comprehensive
[2020-03-27] MEDS: diphenhydrAMINE 50 mg/mL SDV 1mL IM (16:59)
[2020-03-27] MEDS: methylPREDNISolone (DEPO) 80 MG/ML INJ 1 mL IM (16:59)
[2020-03-27 18:32] VITALS: PULSE 75; O2SAT 95
== END 2020-03-27 18:32 | disposition home or self-care (01) ==
PROVIDERS: Emergency Provider Nurse Practitioner Family
DX: T78.40XA Allergy, unspecified, initial encounter (principal); I10 Essential (primary) hypertension
CPT/HCPCS: 12345; 96372; 99281; 99283; J1040; J1200

== ENCOUNTER 2020-04-07 21:58 | Emergency (ER) | payer SELFPAY ==
[2020-04-07 22:01] VITALS: BP 161/98; PULSE 78; RESP 16; TEMP 36.7; O2SAT 95; BMI 35.6
[2020-04-07 22:12] VITALS: BP 170/95; PULSE 81; RESP 14; O2SAT 96
--- NOTE | 2020-04-07 22:34 | ED_ITS ---
HPI - General Adult General: Chief complaint: General Medical Stated complaint: swollen lips Time Seen by Provider: 04/07/20 22:16 History of Present Illness: HPI narrative: Patient is been having hives on and off since his last visit here. Had a worse reaction today where his lip swelled again. Has hives scattered all over. Only, nominated that were able to find is the switch from Mountain Dew to Dr. Webster here a while back patient took 3 Benadryl before coming in. MD complaint: Urticaria Onset (ago): day(s) Severity: mild Associated symptoms: Deny chest pain, dyspnea, headache(s), nausea, rash or vomiting Review of Systems Const: Denies: fever(s), chills or body aches Eyes: Denies: change in vision or blurry vision ENMT: Denies: throat pain or nasal congestion Card: Denies: chest pain or dyspnea on exertion Resp: Denies: dyspnea, productive cough or non-productive cough GI: Denies: abdominal pain, nausea or vomiting : Denies: difficulty urinating Musc: Denies: extremity pain Skin/Breast: Reports: pruritus and erythema; Denies: rash Neuro: Denies: headache(s) Psych: Denies: anxiety or depression [place]/Lymph: Denies: easy bruising PFSH ED PFSH: Medical History (Updated 04/04/20 @ 00:01 by ) Asthma Cardiac murmur Hypertension Surgical History (System 02/06/20 @ 11:35 by Jazmyne Skelton) No history of previous surgery Status post laparoscopic appendectomy (~10/2019) Family History (System 02/06/20 @ 11:35 by Jazmyne Skelton) Denies family history of Anesthesia complication Bleeding disorder Social History (System 02/06/20 @ 11:35 by Jazmyne Skelton) Smoking and tobacco status: never smoked Physical Exam Narrative: EXAM NARRATIVE: Patient does have swollen lips. Has scattered wheals across his body arms trunk abdomen legs. Varying in size. Const: COMMON NORMALS: no acute distress, average body habitus and patient oriented x3 HENMT: COMMON NORMALS: normocephalic HEAD & SCALP: normal to inspection and normocephalic FACE & SINUS: normal facial exam Eye: COMMON NORMALS: conjunctivae normal GENERAL EYE: appearance normal, both eyes and all related structures CONJUNCTIVA: Yes conjunctivae normal Neck/C-Spine: COMMON NORMALS: no JVD Chest: COMMONS NORMALS: normal inspection of the chest Resp: COMMON NORMALS: normal respiratory effort and clear to auscultation bilaterally AUSCULTATION: clear to auscultation bilaterally Cardio: COMMON NORMALS: no JVD, regular rate and regular rhythm RATE: regular rate RHYTHM: regular rhythm GI: COMMON NORMALS: Normal to inspection, nondistended, normoactive bowel sounds present Extremity: COMMON NORMALS: normal to inspection and full ROM Neuro: COMMON NORMALS: patient oriented x3 Skin: GENERAL SKIN EXAM: other (Wheals) Course Vital Signs: Vital signs: Vital Signs Temperature 98.0 F 04/07/20 22:01 Pulse Rate 78 04/07/20 22:01 Respiratory Rate 16 04/07/20 22:01 Blood Pressure 161/98 04/07/20 22:01 Pulse Oximetry 95 04/07/20 22:01 Discharge Plan Discharge Prescriptions: No Action clobetasol 0.05 % gel 1 applic TOPICAL BID 7 Days Qty: 15 RF: 0 Medrol (Jose) 4 mg tablets,dose pack See Rx Instructions .ROUTE .COMPLEX Qty: 21 RF: 0 Coding Level of Care Code ED Marketing Technology Coordinator for Dayne Heck
[2020-04-07] MEDS: hyDROXYzine 25 mg Capsule 50 MG PO (22:40)
[2020-04-07 22:42] VITALS: BP 169/99; PULSE 80; RESP 16; O2SAT 95
[2020-04-07] MEDS: methylPREDNISolone (DEPO) 80 MG/ML INJ 1 mL IM (22:42)
[2020-04-07 22:54] VITALS: BP 160/94; PULSE 82; RESP 18; O2SAT 95
--- NOTE | 2020-04-08 09:06 | DCPLANNER ---
network contract manager had message to schedule a follow up appointment for patient with dermatology. network contract manager called the office of Dr. Sheth, Dermatology. network contract manager gave clinic patients information. network contract manager was told that patients information would be printed and reviewed. Clinic will call patient with appointment information.
--- NOTE | 2020-04-13 07:50 | DCPLANNER ---
Patient has a follow up appointment scheduled for Monday, April 13, 2020 at 11:[address] Sheth, Dermatology. Clinic will call patient with appointment information.
--- NOTE | 2020-05-21 14:15 | DCPLANNER ---
Patient had a follow up appointment scheduled for 04.13.20 with dermatology - patient did attend appointment.
== END 2020-04-07 22:59 | disposition home or self-care (01) ==
PROVIDERS: Emergency Provider Nurse Practitioner Family
DX: L50.9 Urticaria, unspecified (principal); I10 Essential (primary) hypertension
CPT/HCPCS: 12345; 96372; 96375; 99281; 99283; J1040

== ENCOUNTER 2020-09-23 09:20 | Emergency (ER) | payer SELFPAY ==
[2020-09-23 09:25] VITALS: BP 186/115; PULSE 81; RESP 16; TEMP 36.7; O2SAT 96; BMI 37.5
[2020-09-23 09:44] VITALS: BP 157/105; PULSE 83; RESP 15; O2SAT 96
--- NOTE | 2020-09-23 09:59 | CT_ITS ---
WS: [id number] CT ABDOMEN PELVIS TECHNIQUE: Contrast-enhanced CT of the abdomen and pelvis with coronal and sagittal reformatted image s. CLINICAL INFORMATION: abd pain COMPARISON: CT October 14, 2019 DLP: 2071.[address] scans at [facility] use at least one of these dose optimization techniques: automat ed exposure control; mA and/or kV adjustment per patient size (includes targeted exams where dose is matched to clinical indication); or iterative reconstruction. FINDINGS: Prior appendectomy. Surgical clips right lower quadrant. Diffuse fatty infiltration of the liver. 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 Normal pancreas. Normal spleen. Normal GE junction. Lung bases are well aerated. Adrenal glands are normal. Normal renal parenchymal enhancement. No hydronephrosis. Pro minent lymph nodes in the jorge hepatis unchanged from previous likely reactive. Normal caliber abdom inal aorta. Normal colon. No evidence of small or large bowel obstruction. No bowel distention. Tiny incidental f at-containing umbilical hernia. No abdominal or pelvic lymphadenopathy. 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 CT/CT abdomen pelvis w con* [id number] IMPRESSION: 1. Prior appendectomy. 2. Diffuse fatty infiltration of the liver. 3. No acute findings in the abdomen or pelvis.
[2020-09-23] MEDS: ondansetron 2 mg/ML SDV 2 mL 4 MG IVP (10:05)
[2020-09-23] MEDS: sodium chloride 0.9% 1,000 ML 999 ML IV (10:05)
--- NOTE | 2020-09-23 10:05 | W.ED.ABDPA2 ---
HPI - Abdominal Pain General: Chief Complaint: Abdominal Pain Stated Complaint: ABD PAIN Time Seen by Provider: 09/23/20 09:28 History of Present Illness: HPI narrative: 30-year-old male presents emergency room with complaining of abdominal pain and nausea began 2 days ago he is not had any vomiting. He is noticed with pretty much anything he eats he gets worse. He previously had an appendectomy he does have some reflux and is on omeprazole [id number]. He denies hematochezia melena hematemesis coffee-ground emesis denies fever sweats or chills. MD elicited complaint: abdominal pain Onset (ago): day(s) (2) Pain Consistency: constant Location: Epigastric and LUQ Severity: moderate Quality: cramping Radiation: suprapubic Exacerbating factors: eating Relieving factors: other (Fasting) Associated Symptoms: Reports anorexia, bloating, GI cramping, dyspepsia and poor appetite; Denies belching, change in bowel habits, change in stool character, chills, coffee ground emesis, constipation, diarrhea, dysuria, excessive flatus, fever(s), heartburn, hematochezia, hematuria, hematemesis, fecal incontinence, loose stools, melena, nausea, syncope and vomiting Review of Systems Const: Denies: fever(s) or chills ENMT: Denies: throat pain, ear or mastoid pain, nasal discharge or nasal congestion Card: Denies: syncope Resp: Denies: dyspnea, productive cough or non-productive cough GI: Reports: bloating and GI cramping; Denies: nausea, vomiting, hematemesis, coffee ground emesis, heartburn, diarrhea, constipation, belching, excessive flatus, fecal incontinence, change in bowel habits, change in stool character, hematochezia or melena : Denies: dysuria or hematuria Skin/Breast: Denies: rash or pruritus PFS ED PFSH: Medical History (Updated 09/23/20 @ 12:33 by Shaun Jimenez DO) Asthma Cardiac murmur Hypertension Surgical History No history of previous surgery Status post laparoscopic appendectomy (~10/2019) Family History Denies family history of Anesthesia complication Bleeding disorder Social History Smoking and tobacco status: never smoked Physical Exam Const: COMMON NORMALS: no acute distress GENERAL APPEARANCE: cooperative and comfortable ORIENTATION/CONSCIOUSNESS: Yes awake, Yes oriented to person, Yes oriented to place and Yes oriented to time HENMT: COMMON NORMALS: normocephalic, atraumatic, hearing grossly normal bilaterally and external ears normal HEAD & SCALP: normocephalic and atraumatic EXTERNAL EAR: Yes external ears normal Eye: COMMON NORMALS: Equal, round and reactive pupils present, EOMs intact bilaterally, conjunctivae normal and no scleral icterus CONJUNCTIVA: Yes conjunctivae normal PUPIL: Yes Equal, round and reactive pupils present Neck/C-Spine: COMMON NORMALS: full ROM, no lymphadenopathy, supple and no JVD Lymph: LYMPHATIC: no lymphadenopathy noted and no lymphedema noted Resp: COMMON NORMALS: normal respiratory effort, No retractions, No use of accessory muscles and clear to auscultation bilaterally AUSCULTATION: clear to auscultation bilaterally Cardio: COMMON NORMALS: no JVD, regular rate, regular rhythm and No murmurs present (Cardio) RATE: regular rate RHYTHM: regular rhythm GI: COMMON NORMALS: No hepatosplenomegaly present AUSCULTATION: Yes normoactive bowel sounds PALPATION: Yes Tenderness to palpation present (GI) (Epigastrium) Details: LLQ, No Guarding due to palpation present (GI) and Yes No hepatosplenomegaly present Extremity: COMMON NORMALS: normal to inspection, capillary refill normal, no clubbing, cyanosis or edema, no calf tenderness and no pedal edema Neuro: SENSORIUM/ORIENTATION: Yes oriented to person, Yes oriented to place and Yes oriented to time Skin: COMMON NORMALS: no rashes or lesions noted GENERAL SKIN EXAM: no rashes or lesions noted Course Vital Signs: Vital signs: Vital Signs Temperature 98.1 F 09/23/20 09:25 Pulse Rate 68 09/23/20 11:27 Respiratory Rate 14 09/23/20 11:27 Blood Pressure 147/88 09/23/20 11:27 Pulse Oximetry 95 09/23/20 11:27 MDM - Abdominal Pain MDM Narrative: Medical decision making narrative: CT shows diffuse fatty infiltration of liver which accounts for his mildly elevated liver enzymes his abdominal exam is generally benign. He does have lactose intolerance but he states he has been avoiding lactose pretty religiously. We will discharge him home with pantoprazole and Zofran. We will also refer him to GI for possible EGD. Return if has problems. Lab Data: Labs: Lab Results 09/23/20 09/23/20 09/23/20 Range/Units 09:35 09:35 11:18 WBC 11.9 H (4.0-10.0) 10^3/ uL RBC 5.59 H (4.1-5.3) 10^6/u L Hgb 16.1 (11.7-16.6) g/dL Hct 48.3 (42.0-52.0) % MCV 86.4 (80-94) fL MCH 28.8 (28.0-34.0) pg MCHC 33.3 (30.0-36.0) g/dL RDW 12.6 (12.1-15.1) % Plt Count 319 (130-400) 10^3/c mm MPV 10.3 (7.4-10.4) fL Neut % (Auto) 69.3 % Lymph % (Auto) 19.9 % [place] % (Auto) 5.8 % Eos % (Auto) 4.4 % Baso % (Auto) 0.3 % Neut # (Auto) 8.24 H (1.8-7.7) 10^3/u L Lymph # (Auto) 2.4 (0.8-4.8) 10^3/u L [place] # (Auto) 0.7 (0.2-0.9) 10^3/u L Eos # (Auto) 0.5 (0.0-0.8) 10^3/u L Baso # (Auto) 0.0 (0.0-0.1) 10^3/u L Nucleated RBC % (a uto) 0 % Nucleated RBCs # 0.0 /100WBC Sodium 139 (136-145) mmol/L Potassium 4.0 (3.5-5.1) mmol/L Chloride 102 (98-107) mmol/L Carbon Dioxide 26 (22-29) mmol/L Anion Gap 15.0 (5-19) BUN 8 (6-20) mg/dL Creatinine 0.8 (0.7-1.2) mg/dL GFR Calculation 114.3 (90-130) mL/min Glucose 108 (65-115) mg/dL Calculated Osmolal ity 287 (285-295) mOsm/k g Calcium 8.2 L (8.5-10.5) mg/dL Total Bilirubin 0.6 (0.15-1.2) mg/dL AST 71 H (0-40) U/L ALT 119 H (0-41) U/L Alkaline Phosphata se 116 (40-130) IU/L Total Protein 7.3 (6.6-8.7) g/dL Albumin 4.1 (3.5-5.2) g/dL Globulin 3.2 (1.3-4.6) g/dL Lipase 21 (13-60) U/L Urine Color Yellow (Yellow) Urine Appearance Clear (CLEAR) Urine pH 7 (5-7) Ur Specific Gravit y 1.010 (1.005-1.030) Urine Protein Neg (Negative) Urine Glucose (UA) Norm (Normal) Urine Ketones Negative (Negative) Urine Blood Neg (Negative) Urine Nitrate Negative (Negative) Urine Bilirubin Neg (Negative) Urine Urobilinogen Norm (Negative) mg/dL Ur Leukocyte Gabriela ase Negative (Negative) Discharge Plan Discharge Patient Disposition: Home Clinical Impression: Abdominal pain Condition: Stable Prescriptions: New pantoprazole 40 mg tablet,delayed release (DR/EC) 40 mg PO DAILY 56 Days RF: 0 Zofran 4 mg tablet 4 mg PO Q6H PRN (Reason: nausea and vomiting) Qty: 20 RF: 0 Discharge Orders: Discharge ED (Routine); Ordered 09/23/20 Ordered By: Shaun Jimenez Discharge Diet: Clear Liquid Discharge Activity: Increase activity as tolerated Patient Instructions: Abdominal Pain (ED), Opioid Safety Coding Level of Care Code 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
[2020-09-23 10:06] LABS: Basophils % 0.3 %; Eosinophils # 0.5 10^3/uL (0.0-0.8); Eosinophils % 4.4 %; Hematocrit 48.3 % (42.0-52.0); Hemoglobin 16.1 g/dL (11.7-16.6); Lymphocytes # 2.4 10^3/uL (0.8-4.8); Lymphocytes % 19.9 %; Mean Corpuscular HGB Conc 33.3 g/dL (30.0-36.0); Mean Corpuscular Hemoglobin 28.8 pg (28.0-34.0); Mean Corpuscular Volume 86.4 fL (80-94); Mean Platelet Volume 10.3 fL (7.4-10.4); Monocytes # 0.7 10^3/uL (0.2-0.9); Monocytes % 5.8 %; Neutrophils # 8.24 10^3/uL (1.8-7.7); Neutrophils % 69.3 %; Nucleated Red Blood Cells % 0 %; Platelet Count 319 10^3/cmm (130-400); Red Blood Count 5.59 10^6/uL (4.1-5.3); Red Cell Distribution Width 12.6 % (12.1-15.1); White Blood Count 11.9 10^3/uL (4.0-10.0)
[2020-09-23 10:10] VITALS: RESP 15
[2020-09-23] MEDS: morphine 4 mg/mL SDV 1 mL IVP (10:10)
[2020-09-23 10:19] LABS: Alanine Aminotransferase 119 U/L (0-41); Albumin Level 4.1 g/dL (3.5-5.2); Alkaline Phosphatase 116 IU/L (40-130); Aspartate Amino Transferase 71 U/L (0-40); Blood Urea Nitrogen 8 mg/dL (6-20); Calcium 8.2 mg/dL (8.5-10.5); Carbon Dioxide 26 mmol/L (22-29); Chloride 102 mmol/L (98-107); Globulin 3.2 g/dL (1.3-4.6); Glomerular Filtration Rate 114.3 mL/min (90-130); Glucose 108 mg/dL (65-115); Lipase 21 U/L (13-60); Osmolality Calculated 287 mOsm/kg (285-295); Sodium 139 mmol/L (136-145); Total Bilirubin 0.6 mg/dL (0.15-1.2); Total Protein 7.3 g/dL (6.6-8.7)
[2020-09-23] MEDS: iohexol 300 mg/mL 100 mL Btl IV (10:24)
[2020-09-23 10:34] VITALS: BP 157/96; RESP 16; O2SAT 95
--- NOTE | 2020-09-23 10:49 | PC.PHAR ---
pt states he is suppose to be taking bp meds but hasnt taken them since he was 19-pt states he is unsure of the name of what he was taking-pt states he takes no meds or otc meds
[2020-09-23 11:24] LABS: Add Urine Microscopic? NO; Charge for UA Resulting for Rev
[2020-09-23 11:27] VITALS: BP 147/88; PULSE 68; RESP 14; O2SAT 95
[2020-09-23 11:35] LABS: Bilirubin Urine Neg (Negative); Blood Urine Neg (Negative); Glucose Urine UA Norm (Normal); Ketones Urine Negative (Negative); Leukocyte Esterase Urine Negative (Negative); Nitrate Urine Negative (Negative); Protein Urine Neg (Negative); Urine Appearance Clear (CLEAR); Urine Color Yellow (Yellow); Urobilinogen Urine Norm (Negative); pH Urine 7 (5-7)
--- NOTE | 2020-09-24 08:36 | DCPLANNER ---
assistant plant manager had message to schedule a follow up appointment for patient with general surgery for possible EGD. assistant plant manager emailed patients information to Araseli at [facility] General Surgery. Patients information will be printed and reviewed. Clinic will call patient with appointment information.
--- NOTE | 2020-09-27 07:21 | DCPLANNER ---
department store general manager was told that clinic called patient, unable to speak with patient and a message was left for patient to call clinic to schedule an appointment.
== END 2020-09-23 12:44 | disposition home or self-care (01) ==
PROVIDERS: Emergency Provider Family Medicine
DX: R10.9 Unspecified abdominal pain (principal); I10 Essential (primary) hypertension
CPT/HCPCS: 74177; 80053; 81003; 83690; 85025; 96361; 96374; 96375; 99284; J2270; J2405; J7030; Q9967

== ENCOUNTER → 2021-06-21 12:42 | Outpatient (BNVA) | payer SELFPAY | PROVIDERS: Visit Provider Nurse Practitioner | DX: R50.9 Fever, unspecified (principal); J10.1 Influenza due to other identified influenza virus with other respiratory manifestations | CPT/HCPCS: 87400 ==

== ENCOUNTER → 2021-10-11 10:35 | Outpatient (BNVA) | payer SELFPAY | PROVIDERS: Visit Provider Family Medicine Adult Medicine | DX: Z20.822 Contact with and (suspected) exposure to COVID-19 (principal) | CPT/HCPCS: 87635 ==

== ENCOUNTER → 2022-10-19 09:56 | Outpatient (BNVA) | payer OTHER, SELFPAY | PROVIDERS: PCP Family Medicine; Visit Provider Family Medicine | DX: R53.83 Other fatigue (principal); Z13.6 Encounter for screening for cardiovascular disorders; R63.1 Polydipsia | CPT/HCPCS: 80053; 80061; 83036; 84403; 84443; 85025 ==

== ENCOUNTER 2022-11-01 14:22 | Outpatient (CLI) | payer OTHER, SELFPAY ==
--- NOTE | 2022-11-01 14:30 | US_ITS ---
WS: [id number] RIGHT UPPER QUADRANT ULTRASOUND HISTORY: Fatty Liver COMPARISON: 10/14/2019 Liver: 18.9 cm in length. Liver is mildly enlarged. There is slight coarse echotexture throughout the liver. No mass identified. No intrahepatic dilatation. Portal Vein: Normal hepatopetal flow with monophasic waveform. Gallbladder: Normally distended gallbladder with no stones or wall thickening. CBD: 0.2 cm Pancreas: Normal size and echogenicity. Right kidney: 12.1 cm in length. Normal size and echogenicity. No hydronephrosis or mass. Aorta and IVC: Unremarkable abdominal aorta and IVC. No ascites. US/US liver [id number] IMPRESSION: 1. Moderately enlarged liver with mild hepatic steatosis. Liver is slightly sm aller in size as compared to the prior study. 2. Negative gallbladder.
== END 2022-11-01 14:23 | disposition home or self-care (01) ==
PROVIDERS: PCP Family Medicine; Visit Provider Family Medicine
DX: K76.0 Fatty (change of) liver, not elsewhere classified (principal); R16.0 Hepatomegaly, not elsewhere classified
CPT/HCPCS: 76705

== ENCOUNTER 2022-12-16 06:07 | Emergency (ER) | payer OTHER, SELFPAY ==
[2022-12-16] VITALS (8 sets, daily range): BP systolic 144–163; BP diastolic 72–102; PULSE 73–92; RESP 18–20; TEMP 36.6–37; O2SAT 97–98; BMI 36.3
--- NOTE | 2022-12-16 07:23 | W.ED.SKABFB ---
HPI - Skin/Abscess/Foreign Bdy General: Chief complaint: Skin/Abscess/Foreign Body Stated complaint: bug in ear Time Seen by Provider: 12/16/22 06:18 Source: patient Mode of arrival: ambulatory History of Present Illness: 32-year-old male who presents emergency room complaining of an insect in his right ear. He applied oil to his ear to kill the insect but is still present. He has not had any drainage from the ear he first noted in the ear around 4 AM this morning. Onset (ago): hour(s) Associated symptoms: Deny chills or fever(s) Review of Systems Const: Denies: fever(s) or chills ENMT: Reports: ear or mastoid pain; Denies: throat pain or ear discharge PFSH ED PFSH: Medical History Asthma Cardiac murmur COVID-19 Hypertension Viral syndrome Surgical History Status post laparoscopic appendectomy (~10/2019) Family History Denies family history of Anesthesia complication Bleeding disorder Social History Smoking and tobacco status: former smoker Physical Exam Const: COMMON NORMALS: no acute distress GENERAL APPEARANCE: cooperative and comfortable ORIENTATION/CONSCIOUSNESS: Yes awake HENMT: COMMON NORMALS: normocephalic, atraumatic and hearing grossly normal bilaterally HEAD & SCALP: normocephalic and atraumatic OTHER: Moderate amount of cerumen in the right external auditory canal. I can visualize an insect past the cerumen. Resp: COMMON NORMALS: normal respiratory effort, No retractions, No use of accessory muscles and clear to auscultation bilaterally AUSCULTATION: clear to auscultation bilaterally Cardio: COMMON NORMALS: regular rate, regular rhythm and No murmurs present (Cardio) RATE: regular rate RHYTHM: regular rhythm Procedures Foreign Body Removal Time Out Performed: yes Site: right Description of foreign body: insect Sedation/Analgesia: fentanyl and other (Ativan) Technique: removal with forceps Confirmed by:: direct visualization Complications: pain Post-procedure exam: awake, alert Course Vital Signs: Vital signs: Vital Signs Temperature 98 F 12/16/22 08:26 Pulse Rate 85 12/16/22 08:33 Respiratory Rate 18 12/16/22 08:33 Blood Pressure 158/90 12/16/22 08:26 Pulse Oximetry 98 12/16/22 08:33 Oxygen Delivery Me thod Room Air 12/16/22 08:26 MDM - Skin/Abscess/Foreign Bdy Medicial Decision Making Patient unable to tolerate initial attempts at removal of the insect. Is concerned we would cause the injury. I was able to remove some cerumen bit better visualize the insect but he would not tolerate attempts to remove the insect well. Sedation given to accommodate removal of insect. Even was conscious sedation with Versed and fentanyl was difficult to get patient to remain still. I was able to remove portions of the insect but it became dismember to removed what appeared to be a wing as well as a couple of legs but anytime I try to graft the body with the alligator forceps he had severe pain and would move it was unable to grasp it I tried irrigating it out or dislodging it so he could better grasp it that was unsuccessful. Ahn extractor not an option as it is too far impinged and I do not believe we could get the balloon behind it. Tried to dislodge the cerumen loop also cause enough discomfort that he was not able to tolerate even with the conscious sedation he would move too much. At this point or inducing enough swelling that I am afraid we are going to worsen things. Recommend starting up with Corticosporin attic drops hydrocodone for pain referral to ENT Medical Records I reviewed the patient's medical records. Discharge Plan Discharge Patient Disposition: Home Clinical Impression: Foreign body in right ear Condition: Stable Prescriptions: New hydrocodone-acetaminophen 5-325 mg tablet 1 tab PO Q6H PRN (Reason: pain) Qty: 15 0RF Cortisporin-TC 3.3-3-10-0.5 mg/mL drops,suspension 5 drp otic (ear) QID 5 Days Qty: 10 0RF Rx Instructions: May substitute ophthalmic suspension No Action terbinafine HCl 250 mg tablet 250 mg PO DAILY Qty: 14 0RF atorvastatin 20 mg tablet 20 mg PO .hs Qty: 30 2RF Rx Instructions: Take one tablet daily at night Discharge Orders: Discharge ED (Routine); Ordered 12/16/22 Ordered By: Shaun Jimenez Referrals: Joanne Pate DO [Primary Care Provider] - Patient Instructions: Opioid Safety, Pain Management Activity Restrictions/Additional Instructions: Case management will make arrangements for you to be seen by ENT to have the foreign body removed from the right ear. Start the eardrops and use pain medications as needed. Coding Level of Care Code ED Senior Ui U[employer] Developer for Dayne Heck
[2022-12-16] MEDS: LORazepam 2 mg/mL INJ 1 mL IVP (07:43)
[2022-12-16] MEDS: fentaNYL 50 mcg/mL INJ 2mL IVP ×2 (07:44→08:06)
--- NOTE | 2022-12-16 08:07 | PC.NURSE ---
0749 physician attempted removal of foreign object from pt right ear. physician unable to obtain object, physician gave verbal order for moderate sedation procedure/protocol.
[2022-12-16] MEDS: midazolam 1 mg/mL INJ 2 mL 4 MG IVP (08:21)
== END 2022-12-16 10:04 | disposition home or self-care (01) ==
PROVIDERS: Emergency Provider Family Medicine; PCP Family Medicine
DX: T16.1XXA Foreign body in right ear, initial encounter (principal); X58.XXXA Exposure to other specified factors, initial encounter; I10 Essential (primary) hypertension; Z87.891 Personal history of nicotine dependence
CPT/HCPCS: 96374; 96375; 99285; J2060; J2250; J3010

== ENCOUNTER → 2024-02-27 13:18 | Outpatient (BNVA) | payer OTHER, SELFPAY | PROVIDERS: PCP Family Medicine; Visit Provider Emergency Medicine | DX: J06.9 Acute upper respiratory infection, unspecified (principal) | CPT/HCPCS: 71046 ==

== ENCOUNTER 2024-07-27 09:11 | Emergency (ER) | payer SELFPAY ==
[2024-07-27 09:22] VITALS: BP 167/95; PULSE 79; RESP 18; TEMP 36.8; O2SAT 97; BMI 40.6
--- NOTE | 2024-07-27 09:47 | ED_ITS ---
HPI - Headache 2 General: Chief Complaint: Headache Stated Complaint: lft side of head swollen Time Seen by Provider: 07/27/24 09:15 History of Present Illness: 34-year-old male presents emergency room complaining of pain and tenderness in the left occipital area. No fever sweats or chills does have a little bit of a headache. It began 2 days ago no vomiting no diarrhea no sudden vision changes. Associated symptoms: Deny chest pain, fever(s) or rash Related Data Previous Rx's ?Medication ?Instructions ?Recorded albuterol sulfate 90 mcg/actuation 2 puff inhalation Q 6H PRN 02/27/24 aerosol inhaler shortness of breath or wheez ing #8.5 grams cephalexin 750 mg capsule 750 mg PO BID 7 days #14 cap s 07/27/24 Allergies Allergy/AdvReac Type Severity Reaction Status Date / Time Milk Containing Products Allergy Lactose Verified 07/27/24 10:03 (Dairy) (Milk Containing intolerance Products) naproxen Allergy swollern Verified 02/27/24 13:01 lips, sores NSAIDS (Non-Steroidal Allergy ALGY-Swell Verified 07/27/24 10:03 Anti-Inflamma Lip/Tongue/Throat Sulfa (Sulfonamide Allergy swelling Verified 02/27/24 13:01 Antibiotics) Review of Systems 2 Const: Denies: fever(s) or chills Card: Denies: chest pain Resp: Denies: dyspnea GI: Denies: abdominal pain : Denies: dysuria, urinary frequency or urinary urgency Musc: Denies: neck pain or back pain Skin/Breast: Denies: rash PFSH ED 2 PFSH: Medical History Viral syndrome COVID-19 Cardiac murmur Asthma Hypertension Surgical History Status post laparoscopic appendectomy (~10/2019) Family History Denies family history of Anesthesia complication Bleeding disorder Social History Smoking and tobacco/nicotine status: unknown if used tobacco/nicotine Physical Exam 2 Const: COMMON NORMALS: no acute distress GENERAL APPEARANCE: cooperative and comfortable ORIENTATION/CONSCIOUSNESS: Yes awake, Yes oriented to person, Yes oriented to place and Yes oriented to time HENMT: COMMON NORMALS: normocephalic, atraumatic and hearing grossly normal bilaterally HEAD & SCALP: normocephalic and atraumatic OTHER: Slight thickening of the scalp extending from the mole in the upper portion of the occiput. Inferior to that is tender to the touch mildly thickened no fluctuant areas Resp: COMMON NORMALS: normal respiratory effort, No retractions, No use of accessory muscles and clear to auscultation bilaterally AUSCULTATION: clear to auscultation bilaterally Cardio: COMMON NORMALS: regular rate, regular rhythm and No murmurs present (Cardio) RATE: regular rate RHYTHM: regular rhythm GI: COMMON NORMALS: Soft to palpation and No hepatosplenomegaly present A USCULTATION: Yes normoactive bowel sounds PALPATION: Yes Soft to palpation, No Tenderness to palpation present (GI), No Guarding due to palpation present (GI) and Yes No hepatosplenomegaly present Extremity: COMMON NORMALS: normal to inspection, capillary refill normal, no clubbing, cyanosis or edema, no calf tenderness and no pedal edema Neuro: SENSORIUM/ORIENTATION: Yes oriented to person, Yes oriented to place and Yes oriented to time Skin: COMMON NORMALS: no rashes or lesions noted GENERAL SKIN EXAM: no rashes or lesions noted Course 2 Vital Signs: Vital signs: Vital Signs Temperature 98.2 F 07/27/24 09:22 Pulse Rate 71 07/27/24 10:54 Respiratory Rate 18 07/27/24 09:22 Blood Pressure 143/74 07/27/24 10:54 Pulse Oximetry 98 07/27/24 10:54 Oxygen Delivery Me thod Room Air 07/27/24 09:22 MDM - Headache Medical Decision Making CT shows what appears to be a mild cellulitis. Will start the patient on oral antibiotics discharge him home have him follow-up with his primary care if not improving Medical Records I reviewed the patient's medical records. Lab Data I reviewed the patient's lab results. 07/27/24 09:46 07/27/24 09:[address] 07/27/24 09:54 IMPRESSION: 1. No acute intracranial abnormality. 2. Nonspecific prominent soft tissue nodule of the left parietal vertex with heterogeneity of the occipital musculature with prominent left occipital lymph node. Query infectious/inflammatory etiology. Laboratory Results WBC 8.43 10^3/uL (3.29-11.43) 07/27/24 09:46 RBC 4.95 10^6/uL (3.85-5.65) 07/27/24 09:46 Hgb 14.50 g/dL (11.27-16.99) 07/27/24 09:46 Hct 43.8 % (37-53) 07/27/24 09:46 MCV 88.5 fl (82-101) 07/27/24 09:46 MCH 29.3 pg (27-33) 07/27/24 09:46 MCHC 33.1 g/dL (30-55) 07/27/24 09:46 RDW 12.7 % (12.1-15.1) 07/27/24 09:46 Plt Count 251 10^3/cmm (157-399) 07/27/24 09:46 MPV 10.3 fL (7.4-10.4) 07/27/24 09:46 Neut % (Auto) 59.8 % 07/27/24 09:46 Lymph % (Auto) 28.7 % 07/27/24 09:46 Rich % (Auto) 7.8 % 07/27/24 09:46 Eos % (Auto) 3.0 % 07/27/24 09:46 Baso % (Auto) 0.6 % 07/27/24 09:46 Neut # (Auto) 5.04 10^3/uL (1.8-7.7) 07/27/24 09:46 Lymph # (Auto) 2.4 10^3/uL (0.8-4.8) 07/27/24 09:46 Rich # (Auto) 0.7 10^3/uL (0.2-0.9) 07/27/24 09:46 Eos # (Auto) 0.3 10^3/uL (0.0-0.8) 07/27/24 09:46 Baso # (Auto) 0.1 10^3/uL (0.0-0.1) 07/27/24 09:46 Nucleated RBC % (auto) 0 % 07/27/24 09:46 Nucleated RBCs # 0.0 /100WBC 07/27/24 09:46 Sodium 138 mmol/L (136-145) 07/27/24 09:46 Potassium 3.9 mmol/L (3.5-5.1) 07/27/24 09:46 Chloride 103 mmol/L (98-107) 07/27/24 09:46 Carbon Dioxide 26 mmol/L (22-29) 07/27/24 09:46 Anion Gap 12.9 (5-19) 07/27/24 09:46 BUN 8 mg/dL (6-20) 07/27/24 09:46 Creatinine 0.7 mg/dL (0.7-1.2) 07/27/24 09:46 GFR Calculation 129.9 mL/min (90-130) 07/27/24 09:46 Glucose 101 mg/dL (65-115) 07/27/24 09:46 Calculated Osmolality 284 mOsm/kg (285-295) L 07/27/24 09:46 Calcium 8.4 mg/dL (8.5-10.5) L 07/27/24 09:46 Total Bilirubin 0.7 mg/dL (0.15-1.2) 07/27/24 09:46 AST 34 U/L (0-40) 07/27/24 09:46 ALT 45 U/L (0-41) H 07/27/24 09:46 Alkaline Phosphatase 106 U/L (40-130) 07/27/24 09:46 Total Protein 7.3 g/dL (6.6-8.7) 07/27/24 09:46 Albumin 4.0 g/dL (3.5-5.2) 07/27/24 09:46 Globulin 3.3 g/dL (1.3-4.6) 07/27/24 09:46 All radiology interpretation(s) finalized by discharge Discharge Plan Discharge Patient Disposition: Home Clinical Impression: Cellulitis of scalp Condition: Stable Prescriptions: New cephalexin 750 mg capsule 750 mg PO BID 7 Days Qty: 14 0RF No Action albuterol sulfate 90 mcg/actuation HFA aerosol inhaler 2 puff inhalation Q6H PRN (Reason: shortness of breath or wheezing) Qty: 8.5 0RF Discharge Orders: Discharge ED (Routine); Ordered 07/27/24 Ordered By: Shaun Jimenez Referrals: Joanne Pate DO [Primary Care Provider] - Discharge Diet: Usual diet Discharge Activity: Resume usual activity Patient Instructions: Opioid Safety, Pain Management Activity Restrictions/Additional Instructions: Thank you for choosing [facility] for your healthcare needs today. It is very important that you follow up as instructed or that you return to the Emergency Department should you have concerns or if your condition changes or worsens in any way. You are seen today with complaint of discomfort on your scalp. CT does not show any significant abnormalities there is signs of a mild cellulitis in the area you are indicating the discomfort. The tissue is slightly thickened as well it seems to begin around the mole on the occipital area of your scalp. There were no abscesses noted on the CT. Will start you on oral antibiotics if not improving follow-up with your doctor Print Language: Vincentian Coding Level of Care Code ED Survey Worker for Dayne Heck
[2024-07-27 09:51] LABS: Basophils # 0.1 10^3/uL (0.0-0.1); Basophils % 0.6 %; Eosinophils # 0.3 10^3/uL (0.0-0.8); Hematocrit 43.8 % (37-53); Lymphocytes # 2.4 10^3/uL (0.8-4.8); Lymphocytes % 28.7 %; Mean Corpuscular HGB Conc 33.1 g/dL (30-55); Mean Corpuscular Hemoglobin 29.3 pg (27-33); Mean Corpuscular Volume 88.5 fl (82-101); Mean Platelet Volume 10.3 fL (7.4-10.4); Monocytes # 0.7 10^3/uL (0.2-0.9); Monocytes % 7.8 %; Neutrophils # 5.04 10^3/uL (1.8-7.7); Neutrophils % 59.8 %; Nucleated Red Blood Cells % 0 %; Platelet Count 251 10^3/cmm (157-399); Red Blood Count 4.95 10^6/uL (3.85-5.65); Red Cell Distribution Width 12.7 % (12.1-15.1); White Blood Count 8.43 10^3/uL (3.29-11.43)
--- NOTE | 2024-07-27 09:54 | CTR_ITS ---
PROCEDURE INFORMATION: Exam: CT Head Without Contrast Exam date and time: 07/27/2024 10:01 AM Age: 34 years old Clinical indication: Pain; Headache; Additional info: Pain swelling left occiput TECHNIQUE: Imaging protocol: Computed tomography of the head without contrast. Radiation optimization: All CT scans at this facility use at least one of these dose optimization techniques: automated exposure control; mA and/or kV adjustment per patient size (includes targeted exams where dose is matched to clinical indication); or iterative reconstruction. COMPARISON: CT head wo con* [id number] 03/12/2018 5:08 PM RADIATION DOSE METRICS: Total DLP (mGy-cm): 1224.14 FINDINGS: Brain: No hemorrhage. Unremarkable white matter. No mass effect. Cerebral ventricles: No ventriculomegaly. Paranasal sinuses: Mucous retention cyst at the left maxillary sinus. Mastoid air cells: Right mastoid effusion. Bones: No acute fracture. Lymph nodes: Prominent left occipital lymph node which is architecturally normal (series 5, image 8). Soft tissues: Mild heterogeneity occipital musculature and soft tissues (series 5, image 13), nonspecific. Nonspecific prominent soft tissue nodule of the left parietal vertex measuring 5 x 8 mm (series 5, image 35). Other findings: Left cerumen impaction. CT/CT head wo con* [id number] IMPRESSION: 1. No acute intracranial abnormality. 2. Nonspecific prominent soft tissue nodule of the left parietal vertex with heterogeneity of the occipital musculature with prominent left occipital lymph node. Query infectious/inflammatory etiology.
--- NOTE | 2024-07-27 10:04 | PC.PHAR ---
Pt states uses marijuana on occasion.
[2024-07-27 10:16] LABS: Alanine Aminotransferase 45 U/L (0-41); Alkaline Phosphatase 106 U/L (40-130); Anion Gap 12.9 (5-19); Aspartate Amino Transferase 34 U/L (0-40); Blood Urea Nitrogen 8 mg/dL (6-20); Calcium 8.4 mg/dL (8.5-10.5); Carbon Dioxide 26 mmol/L (22-29); Chloride 103 mmol/L (98-107); Creatinine Clr Calc Pharmacy 214.4059; Globulin 3.3 g/dL (1.3-4.6); Glomerular Filtration Rate 129.9 mL/min (90-130); Glucose 101 mg/dL (65-115); Osmolality Calculated 284 mOsm/kg (285-295); Potassium 3.9 mmol/L (3.5-5.1); Sodium 138 mmol/L (136-145); Total Bilirubin 0.7 mg/dL (0.15-1.2); Total Protein 7.3 g/dL (6.6-8.7)
[2024-07-27 10:54] VITALS: BP 143/74; PULSE 71; O2SAT 98
== END 2024-07-27 10:56 | disposition home or self-care (01) ==
PROVIDERS: Emergency Provider Family Medicine; PCP Family Medicine
DX: L03.811 Cellulitis of head [any part, except face] (principal); I10 Essential (primary) hypertension
CPT/HCPCS: 70450; 80053; 85025; 99284